=== PATIENT | male | born 1950 | race Hispanic/Latino ===

== ENCOUNTER 2020-02-29 19:06 | Emergency (ER) | payer MEDICARE, OTHER ==
[2020-02-29] MEDS ORDERED: Acetaminophen 500 MG TAB ONE (19:27)
[2020-02-29 21:05] LABS: #Eosinphils 0.5 thou/uL (0.0-0.7); #Lymphocytes 1.3 thou/uL (1.20-3.40); #Monocytes 0.5 thou/uL (0.11-0.59); %Basophils 0.6 % (0.0-1.0); %Eosinophils 12.3 % (0.0-10.0); %Lymphocytes 29.9 % (21.0-51.0); %Monocytes 10.7 % (0.0-10.0); %Neutrophils 46.5 % (42.0-75.0); Hemoglobin 12.5 g/dL (14.0-18.0); Mean Corpuscular HGB CONC 30.9 g/dL (32.0-36.0); Mean Corpuscular Hemoglobin 27.9 pg (27.0-31.0); Mean Corpuscular Volume 90.3 fL (78.0-98.0); Mean Platelet Volume 7.4 fL (7.4-10.4); Platelet Count 159 thou/uL (130-400); RBC Distribution Width 12.7 % (11.5-14.5); Red Blood Cell (RBC) Count 4.48 mill/uL (4.70-6.10); White Blood Cell (WBC) Count 4.3 thou/uL (4.8-10.8)
--- NOTE | 2020-02-29 21:18 | CT ---
CT CHEST: Date: 02-29-2020 Provided Clinical History: Cough, fever. FINDINGS: The heart, pericardium, and great vessels are suboptimally evaluated in the absence of IV contrast ma terial. Vascular calcification is demonstrated to a minimal degree. There is no evidence for thoracic lymph node enlargement. There are patchy areas of primarily peripheral ground glass opacity involving both lungs, most conspi cuously at the right upper lobe. No pleural fluid or pneumothorax apparent. The airway appears patent and of normal caliber. The visualized portions of the upper abdomen demonstrate no significant abnor mality. The osseous structures demonstrate no concerning lytic or blastic lesions. IMPRESSION: Bilateral lung parenchymal findings which are commonly reported in Covid positive pneumonia. Other pr ocesses such as influenza pneumonia and organizing pneumonia can cause a similar imaging pattern. POS: [id number]
[2020-02-29 21:26] LABS: ALT (SGPT) 19 U/L (8-55); AST (SGOT) 26 U/L (5-34); Albumin 3.7 g/dL (3.4-4.8); Alkaline Phosphatase 67 U/L (40-110); Anion Gap 12 mmol/L (10-20); BUN (Urea Nitrogen) 27 mg/dL (8.4-25.7); Bilirubin, Total 0.7 mg/dL (0.2-1.2); Calc. Creatinine Clearance 0 mL/min (70-130); Calcium 8.4 mg/dL (7.8-10.44); Carbon Dioxide 27 mmol/L (23-31); Chloride 99 mmol/L (98-107); Estimated GFR-MDRD 44; Globulin 3.6 g/dL (2.4-3.5); Glucose 100 mg/dL (83-110); Protein, Total 7.3 g/dL (5.8-8.1); Sodium 134 mmol/L (136-145)
[2020-02-29 22:40] LABS: Bilirubin Negative (Negative); Blood, Urine Trace (Negative); Clarity Clear (Clear); Glucose, Urine (Dipstick) Negative (Negative); Leukocyte Negative (Negative); Nitrite Negative (Negative); Protein, Urine (Dipstick) Trace mg/dL (Neg-Trace)
[2020-02-29 22:41] LABS: Bacteria/HPF None Seen HPF (None Seen); RBC/HPF 0-3 HPF (0-3); Squamous Epithelial None Seen HPF (0-3); WBC/HPF None Seen HPF (0-3)
[2020-03-02 13:58] LABS: SARS-CoV-2 MS2 Positive; SARS-CoV-2 N Gene Positive; SARS-CoV-2 S Gene Positive; SARS-CoV-2 orf1ab Positive
== END 2020-02-29 23:38 | disposition short-term general hospital (02) ==
LOC: NAV ERS 19:06
DX: U07.1 COVID-19 (principal); R79.1 Abnormal coagulation profile; R93.89 Abnormal findings on diagnostic imaging of other specified body structures; I10 Essential (primary) hypertension; E78.5 Hyperlipidemia, unspecified; J45.909 Unspecified asthma, uncomplicated; Z79.899 Other long term (current) drug therapy
CPT/HCPCS: 36415; 71250; 80053; 81003; 81015; 83605; 84484; 85025; 85379; 87635; 94760; U0003

== ENCOUNTER 2020-04-07 11:59 | Emergency (ER) | payer MEDICARE, OTHER ==
[~2020-04-07 11:59] MED LIST: Ipratropium/Albuterol Sulfate 4 GM AER ONE
[2020-04-07] MEDS ORDERED: Aspirin 325 MG TAB ONE (12:19)
[2020-04-07] MEDS ORDERED: Ventolin HFA Inhaler 60 PUFF INHALER ONE (12:19)
[2020-04-07] MEDS ORDERED: Aspirin Chewable 81 MG TAB ONE (12:21)
[2020-04-07 12:34] LABS: #Basophils 0.1 thou/uL (0.0-0.2); #Lymphocytes 3.3 thou/uL (1.20-3.40); #Monocytes 0.8 thou/uL (0.11-0.59); #Neutrophils 4.7 thou/uL (1.40-6.50); %Eosinophils 24.9 % (0.0-10.0); %Lymphocytes 28.1 % (21.0-51.0); %Monocytes 6.6 % (0.0-10.0); %Neutrophils 39.4 % (42.0-75.0); Hemoglobin 13.9 g/dL (14.0-18.0); Mean Corpuscular HGB CONC 30.7 g/dL (32.0-36.0); Mean Corpuscular Volume 91.3 fL (78.0-98.0); Mean Platelet Volume 7.9 fL (7.4-10.4); Platelet Count 265 thou/uL (130-400); RBC Distribution Width 13.6 % (11.5-14.5); Red Blood Cell (RBC) Count 4.95 mill/uL (4.70-6.10); White Blood Cell (WBC) Count 11.9 thou/uL (4.8-10.8)
[2020-04-07 12:49] LABS: ALT (SGPT) 30 U/L (8-55); AST (SGOT) 24 U/L (5-34); Albumin 4.5 g/dL (3.4-4.8); Alkaline Phosphatase 91 U/L (40-110); Anion Gap 17 mmol/L (10-20); BUN (Urea Nitrogen) 16 mg/dL (8.4-25.7); Bilirubin, Total 0.7 mg/dL (0.2-1.2); Calc. Creatinine Clearance 0 mL/min (70-130); Calcium 9.6 mg/dL (7.8-10.44); Carbon Dioxide 23 mmol/L (23-31); Chloride 105 mmol/L (98-107); Estimated GFR-MDRD 60; Globulin 3.5 g/dL (2.4-3.5); Glucose 145 mg/dL (83-110); Potassium 4.6 mmol/L (3.5-5.1); Sodium 140 mmol/L (136-145)
[2020-04-07] MEDS ORDERED: Propofol 1,000 MG/100 ML VIAL IV ONE (13:21)
[2020-04-07 13:22] LABS: Base Excess (BEa) POC ABG -2.9 mmol/L (0 (+/- 2.5)); Calcium, Ionized 1.29 mmol/L (1.15-1.33); Hemoglobin POC ABG 15.5 g/dL (12.0-17.0); O2 Saturation (calc) POC ABG 99.8 % (94-98); Potassium POC ABG 4.3 mmol/L (3.5-4.5); pH (Arterial) 7.146 (7.35-7.45)
[2020-04-07] MEDS ORDERED: Midazolam HCl 2 mg/2 ml Vial ONE (14:02)
[2020-04-07] MEDS ORDERED: cefTRIAXone\\ROCEPHIN 2 GM VIAL ONE (14:13)
[2020-04-07] MEDS ORDERED: Fentanyl 100 MCG/2 ML VIAL ONE (14:13)
[2020-04-07] MEDS ORDERED: methylPREDNISolone Sod Succ/PF 125 MG/2 ML VIAL ONE (14:13)
[2020-04-07] MEDS ORDERED: Sodium Chloride 0.9% 100 ML ONE (14:13)
== END 2020-04-07 15:25 | disposition short-term general hospital (02) ==
LOC: NAV ERS 11:59
DX: R06.03 Acute respiratory distress (principal); I16.0 Hypertensive urgency; R05 Cough; R09.02 Hypoxemia; I10 Essential (primary) hypertension; E78.5 Hyperlipidemia, unspecified; J45.909 Unspecified asthma, uncomplicated; Z79.899 Other long term (current) drug therapy; Z20.828 Contact with and (suspected) exposure to other viral communicable diseases
CPT/HCPCS: 31500; 51702; 80053; 82330; 82803; 83605; 83880; 84484; 85025; 87040; 93005; 96365; 96366; 96368; 96374; 96375; 99292; J0696; J2250; J2704; J2930; J3010